=== PATIENT | male | born 1965 | race Caucasian/White ===

== ENCOUNTER 2018-10-09 17:43 | Emergency (ER) | payer OTHER ==
[~2018-10-09] VITALS: Ht 180.3 cm; Wt 69.9 kg
[2018-10-09] MEDS ORDERED: IBUPROFEN 600 MG TABLET PO ONE ×2 (18:00→18:02)
--- NOTE | 2018-10-09 18:00 | NUR ---
BIB SELF PT C/O NECK, RT ELBOW PAIN, LOW BACK PAIN & NUMBNESS ON RT LEG. S/P SLIP & FALL YESTERDAY @ MD OFFICE PER PT. -KO. ALERT AND ORIENTED X 4, VERBALY RESPONSIVE AND ABLE TO MAKE NEEDS KNOWN. ON ROOM AIR, BREATHING EVENLY AND UNLABORED. KEPT COMFORTABLE. WILL CONTINUE TO MONITOR ACCORDINGLY.
[2018-10-09 19:22] VITALS: BP 127/71
--- NOTE | 2018-10-09 19:23 | NUR ---
Patient discharged to home in stable condition. Written and verbal after care instructions given. Patient verbalizes understanding of instruction.
== END 2018-10-09 19:22 | disposition home or self-care (01) ==
LOC: ER 17:43
DX: M54.5 Low back pain (principal); M54.2 Cervicalgia; E78.00 Pure hypercholesterolemia, unspecified; Z60.2 Problems related to living alone; W01.0XXA Fall on same level from slipping, tripping and stumbling without subsequent striking against object, initial encounter; Y93.89 Activity, other specified; Y92.89 Other specified places as the place of occurrence of the external cause; Y99.8 Other external cause status
CPT/HCPCS: 72110; 99283; A4606; Z7610